=== PATIENT | male | born 1960 | race Caucasian/White ===

== ENCOUNTER 2024-05-06 21:35 | Emergency (ER) | payer OTHER, SELFPAY ==
[2024-05-06 21:37] VITALS: BP 131/64
[2024-05-06 21:50] LABS: % Basophils 0.4 % (0-2); % Eosinophils 2.7 % (0-6); % Immature Granulocytes 0.2 % (0-0.5); % Monocytes 11.2 % (1.7-9.3); % Neutrophils 51.5 % (42.2-75.2); Absolute Eosinophils 0.1 10^3/uL (0-0.7); Absolute Lymphocytes 1.6 10^3/uL (1.2-3.4); Absolute Monocytes 0.5 10^3/uL (0.1-0.6); Absolute Neutrophils 2.5 10^3/uL (1.4-6.5); Hematocrit 33.1 % (39.0-52.0); Hemoglobin 11.7 g/dL (13.0-18.0); Mean Corp Hgb Conc. 35.3 g/dL (33.0-37.0); Mean Corpuscular Hgb 28.1 pg (27.0-31.0); Mean Corpuscular Volume 79.4 fL (80.0-94.0); Mean Platelet Volume 11.5 fL (7.4-10.4); Nucleated Red Blood Cells % 0 % (-); Platelet Count 238 10^3/uL (130-400); Red Blood Cell Count 4.17 10^6/uL (4.70-6.10); White Blood Cell Count 4.8 10^3/uL (4.8-10.8)
--- NOTE | 2024-05-06 21:56 | ED.GENMED ---
History of Present Illness
General
Chief Complaint: Fall
Source: patient
Exam Limitations: none
Time Seen by Provider: 05/06/24 21:44
History of Present Illness
History of Present Illness:
This is a 63 year old male that comes in by ambulance with c/o fall. States that he was in his bedroom and was heading to the [place]. States that he lost his balance and felt lightheaded and fell face first. States that he hit his nose. Denies any LOC.
Denies any fever, chills, chest pain, SOB, abd pain, nausea, vomiting, diarrhea, headache, dizziness, urinary burning.
Past History
Past History
ED Past Medical History: Asthma, COPD, GERD, HTN, Psychiatric (Anxiety, Depression, Schizophrenia) and Other (PNA, abscess mandible, Anemia)
ED Past Surgical History: None
Social History
Tobacco: Smoker
Alcohol: None
Personal: Single
Living: assisted living
Employment: Not employed
Review of Systems
Review of Systems
All Other Systems: ROS reviewed and negative except as documented in HPI and ROS
Constitutional: Reports no symptoms; Denies fever or chills
EENT: Reports other (Nasal tenderness)
Respiratory: Reports no symptoms; Denies cough or trouble breathing
Cardiac: Reports no symptoms; Denies chest pain
ABD/GI: Reports no symptoms; Denies abdominal pain, nausea, vomiting or diarrhea
: Reports no symptoms; Denies dysuria, frequency or urgency
Musculoskeletal: Reports no symptoms
Skin: Reports other (Abrasion nose and right elbow)
Neurological: Reports other (Lightheaded); Denies dizzy or headache
Psychiatric: Reports no symptoms
Phy Exam
General Physical Exam
General Presentation: no apparent distress
General age: appears stated age
General Skin: warm and dry
General Habitus: normal
General Mental: alert
General Hydration: appears well hydrated
ENT Exam
ENT Exam: TM's normal, pharynx normal, neck supple and other (Nasal tenderness with palpation)
Eye Exam
Eye Exam: EOMI
Cardiovascular Exam
Cardiovascular Exam: regular rate/rhythm, no edema, no murmur and normal peripheral pulses
Pulmonary Exam
Pulmonary Exam: lungs clear, no respiratory distress, no rales, chest non tender, no crackles, no rhonchi, no wheezing and no cough
Gastrointestinal Exam
Gastrointestinal Exam: normal bowel sounds, non tender, soft, no organomegaly, no pulsatile mass and non distended
Musculoskeletal Exam
Musculoskeletal Exam: full ROM, no edema and other (negative for any cervical neck, shoulder or spinal tenderness, Patient can cross over, abduct flex elbows move wrist and fingers. Negative for discomfort with knee flexion. )
Skin Exam
Skin Exam: normal color, warm/dry, no rash, no petechia and other (abrasion to the mid nose and right elbow. )
Psychiatric Exam
Psychiatric Exam: normal mood/affect
Course
Orders/Labs/Results
Orders:
Orders
05/06/24 21:44
CBC/With Diff [Complete Blood Count/With Diff] Urgent
CMP [Comprehensive Metabolic Panel] Urgent
05/06/24 21:54
Nasal Bones, complete 3 Views [CR Nasal Bones Comp Min 3 View] Urgent
Comment:
Reason For Exam: fall onto face
05/06/24 21:55
CT Head W/o Iv Contrast Urgent
Comment:
Reason For Exam: Lightheaded. fall
05/06/24 21:56
Orthostatic VS- Treatment ONCE
0.9% Sodium Chloride 500 ml [Nss] 500 ml IV BOLUS
05/06/24 22:02
Ipratropium/Albuterol Sulfate [Duoneb] 3 ml INH R NOW ONE
05/06/24 22:03
Electrocardiogram (*1) Urgent
Reason for Study: Vertigo / Dizzy
EKG- Treatment ONCE
Abnormal Lab Results
05/06/24
21:44
RBC 4.17 L 10^6/uL
(4.70-6.10)
Hgb 11.7 L g/dL
(13.0-18.0)
Hct 33.1 L %
(39.0-52.0)
MCV 79.4 L fL
(80.0-94.0)
MPV 11.5 H fL
(7.4-10.4)
Monocytes % 11.2 H %
(1.7-9.3)
Sodium 132 L mmol/L
(135-145)
Total Protein 6.2 L g/dl
(6.3-8.2)
05/06/24 21:44
05/06/24 21:44
H/H slightly low. Sodium slightly low.
Vital Signs
Initial and Last Documented VS:
Initial Vital Signs
Temp Pulse Resp BP Pulse Ox
97.6 F 80 20 131/64 96
05/06/24 21:37 05/06/24 21:37 05/06/24 21:37 05/06/24 21:37 05/06/24 21:37
Last Documented Vital Signs
Temp Pulse Resp BP Pulse Ox
97.6 F 80 20 126/81 97
05/06/24 21:37 05/06/24 21:37 05/06/24 21:37 05/06/24 22:08 05/06/24 22:12
MDM/Problems Addressed
Differential Diagnosis Includes:
dehydration. abrasion, Nasal fracture,
MDM/Problems Addressed:
As discussed, patient was walking to the [place] in his room and became lightheaded and fell face first. States that he hit his nose. Denies any dizziness.
Will check labs. X-ray nose and CT head. Will give IV fluids
Back into see patient. Explained that he did brake his nose. Patient to follow up with ENT specialist. CT of the head is normal. Will discharge back to [place].
Chronic conditions affecting care: COPD and Asthma
Acute Exacerbation and/or Progression of Chronic Illness: COPD and Asthma
*Radiology
Radiology exam reviewed: preliminary read by ED provider (Nasal bone- Distal nasal fracture. ) and radiology read reviewed (CT head-No acute intracranial abnormality. )
*Pulse Oximetry
Patient hypoxic: no
*EKG
Interpreted by ED Provider?: Yes
Heart Rate: 76
Rate: normal
Rhythm: sinus
Inez: normal axis
Interval: normal interval
QRS Pattern: normal QRS
Ischemia: no ischemia
*Commanding Officer Garage Interpretation
Rate: Commanding Officer Garage- N/A
*Critical Care Note
Total Time (30-74mins, 75-104mins- exclusive of procedures): Not Applicable
ED Attending Note
-
Portions of this chart may have been created with voice recognition software.� Occasional wrong word or��sound alike� substitutions may have occurred due to the inherent limitations of voice recognition software.
Discharge Plan
Departure
Patient Disposition: Home (Routine Discharge)
Date of Disposition: 05/06/24
Time of Disposition: 23:55
Patient with high blood pressure during this ER visit?: No
Condition: Good
Covid-19: Not Applicable
Discharge Problem:
Accidental fall, Closed fracture nasal bone
Instructions: Preventing falls in adults, Nose Fracture ED
Prescriptions:
No Action
hydrochlorothiazide 25 MG tablet
25 mg PO DAILY
albuterol sulfate [Ventolin HFA] 90 MCG/PUFF HFA aerosol inhaler
2 puff inhalation .Q4-6HPRN PRN (Reason: sob)
pf-ypd-AT-Qv-Es-fyghqlj-lutein 1 EACH tablet
1 tab PO DAILY
olanzapine 10 MG tablet
10 mg PO HS
omeprazole magnesium [Prilosec OTC] 20 MG tablet,delayed release (DR/EC)
20 mg PO DAILY
fluticasone propion-salmeterol [Advair HFA] 1 PUFF HFA aerosol inhaler
2 puff inhalation R BID
Invega Injection 234 MG
234 mg .Q 4 WEEKS
benztropine 0.5 MG tablet
0.5 mg PO BID
hydroxyzine pamoate [Vistaril] 50 MG capsule
50 mg PO QID
naproxen sodium [Aleve] 220 MG tablet
220 mg PO Q8HPRN PRN (Reason: pain)
ibuprofen 600 MG tablet
600 mg PO Q6HPRN PRN (Reason: pain)
Haldol: 5 MG
10 mg PO HS
prednisone 10 MG tablet
10 mg PO DAILY Qty: 45 0RF
Rx Instructions:
5 x 3 days, 4 x3 day, 3 x 3 days, 2 x 3 days, 1 x 3 days then stop
metronidazole 500 MG tablet
500 mg PO TID Qty: 30 0RF
levofloxacin 500 MG tablet
500 mg PO DAILY Qty: 0 0RF
L.acid,para-B.bifidum-S.therm [RisaQuad] 1 CAP capsule
1 cap PO BID Qty: 40 0RF
Referrals:
Keanu Nichols MD [Active] - Call in 1-3 days for appt
UNKNOWN - PT DOES,NOT KNOW [Family Provider] -
Activity Restrictions/Additional Instructions:
As discussed, your blood work shows that your sodium was slightly low. Otherwise your labs are normal. Your CT of the head is normal but you do have a nasal fracture. Please use ice to the nose to help decrease the swelling. Bacitracin to the
abrasion. Follow up with the ENT specialist for further evaluation. IF YOU HAVE ANY OTHER CONCERNS PLEASE RETURN TO THE EMERGENCY ROOM.
Interventions
Interventions:
*Risk Screen - Suicide Last Done: 05/06/24 21:37
*General Assessment Last Done: 05/06/24 21:37
*Neglect/Abuse Screening Last Done: 05/06/24 21:37
ED-Musculoskeletal Assessment Last Done: 05/06/24 22:13
ED- Neurological Assessment Last Done: 05/06/24 22:12
ED-Skin Assessment Last Done: 05/06/24 22:13
Discharge Date and Time
Print Language: [place]
[2024-05-06 22:02] LABS: ALT (SGPT) 18 U/L (0-50); AST (SGOT) 28 U/L (17-59); Albumin 3.9 g/dl (3.5-5.0); Alkaline Phosphatase 79 U/L (38-126); Blood Urea Nitrogen 19 mg/dl (9-20); Calcium 9.4 mg/dl (8.4-10.2); Carbon Dioxide 26 mmol/L (22-30); Chloride 100 mmol/L (98-107); Estimated Creatinine Clearance 69 ml/min; Glucose 96 mg/dl (70-99); Potassium 4.2 mmol/L (3.5-5.1); Sodium 132 mmol/L (135-145); Total Bilirubin 0.4 mg/dl (0.2-1.3); Total Protein 6.2 g/dl (6.3-8.2); eGFR > 60.00
[2024-05-06 22:08] VITALS: BP 126/81
[2024-05-06] MEDS: NSS 500 IV (22:09)
[2024-05-06] MEDS: DUONEB 3 ML INH (22:11)
[2024-05-06 22:33] VITALS: BP 130/91
[2024-05-06 22:34] VITALS: BP 132/94
[2024-05-06 22:35] VITALS: BP 135/86
[2024-05-06 22:38] VITALS: BP 130/91; BP 132/94; BP 135/86; PULSE 102; PULSE 103; PULSE 108
== END 2024-05-07 00:51 | disposition home or self-care (01) ==
LOC: EMR 21:35
PROVIDERS: Emergency Medicine; EMERGENCY PHYSICIAN Emergency Medicine
DX: S02.2XXA Fracture of nasal bones, initial encounter for closed fracture (principal); W01.0XXA Fall on same level from slipping, tripping and stumbling without subsequent striking against object, initial encounter; Y93.01 Activity, walking, marching and hiking; J45.909 Unspecified asthma, uncomplicated; J44.89 Other specified chronic obstructive pulmonary disease; K21.9 Gastro-esophageal reflux disease without esophagitis; I10 Essential (primary) hypertension; F41.8 Other specified anxiety disorders; F20.9 Schizophrenia, unspecified; D64.9 Anemia, unspecified; F17.200 Nicotine dependence, unspecified, uncomplicated
CPT/HCPCS: 99284; 94640; 96360; 70160; 70450; 80053; 85025; 93005